=== PATIENT | male | born 1960 ===

== ENCOUNTER 2018-07-22 14:47 | Outpatient (CLI) | payer OTHER ==
[~2018-07-22 14:47] MED LIST: OMEPRAZOLE40 MG PO; PERCOCET 10-3251 TAB PO; TAGAMET300 MG PO; ULTRAM50 MG; XANAX2 MG PO
== END 2018-07-22 14:48 | disposition home or self-care (01) ==
LOC: EKG 14:47
DX: I10 Essential (primary) hypertension (principal)

== ENCOUNTER 2019-03-22 06:15 | Day surgery (SDC) | payer OTHER ==
[~2019-03-22 06:15] MED LIST changes: +GABAPENTIN300 MG PO
== END 2019-03-22 15:30 | disposition home or self-care (01) ==
LOC: CIR.AMB 06:15
DX: D17.1 Benign lipomatous neoplasm of skin and subcutaneous tissue of trunk (principal)